=== PATIENT | female | born 1970 | race Caucasian/White ===

== ENCOUNTER 2018-03-13 05:20 | Day surgery (SDC) | payer OTHER | END 2018-03-13 10:00 | disposition home or self-care (01) | LOC: AMB-ENDOS 05:20 | DX: D12.4 Benign neoplasm of descending colon (principal); K64.8 Other hemorrhoids ==

== ENCOUNTER 2020-10-13 06:30 | Day surgery (SDC) | payer OTHER | END 2020-10-13 14:15 | disposition home or self-care (01) | LOC: AMB-ENDOS 06:30 | PROVIDERS: ATTEND Surgery | DX: D12.4 Benign neoplasm of descending colon (principal); Z20.822 Contact with and (suspected) exposure to COVID-19 ==